=== PATIENT | female | born 1985 | race Caucasian/White ===

== ENCOUNTER 2018-11-14 23:37 | Emergency (ER) | payer OTHER ==
[2018-11-15] MEDS ORDERED: ACETAMINOPHEN 500 MG TABLET (FP) PO ONE (00:09)
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
[2018-11-15] MEDS ORDERED: ACETAMINOPHEN 325 MG TABLET (FP) PO ONE (00:25)
[2018-11-15 00:31] VITALS: BP 110/66; PULSE 83; TEMP 98.5; BMI 25.2
== END 2018-11-15 00:44 | disposition home or self-care (01) ==
LOC: JER 23:37
DX: O26.892 Other specified pregnancy related conditions, second trimester (principal); M62.838 Other muscle spasm; V43.62XA Car passenger injured in collision with other type car in traffic accident, initial encounter; Y92.414 Local residential or business street as the place of occurrence of the external cause; Y93.89 Activity, other specified; Y99.8 Other external cause status; Z3A.24 24 weeks gestation of pregnancy
CPT/HCPCS: 99281-25

== ENCOUNTER 2019-03-11 17:05 | Inpatient (IN) | payer OTHER ==
[2019-03-11] MEDS ORDERED: ELECTROLYTE-148 SOLN 1,000 ML IV SCH (17:10)
[2019-03-11] MEDS ORDERED: PROMETHAZINE HCL 25 MG/1 ML VIAL ONE (17:49)
[2019-03-11] MEDS ORDERED: BUTORPHANOL TARTRATE 1 MG/ML VIAL ONE ×2 (17:49)
[2019-03-11] MEDS ORDERED: OXYTOCIN 20 UNITS in 0.9% NS 20 UNIT/1,000 ML INFUS.BAG IV ONE (18:02)
[2019-03-11 18:12] LABS: BASO % 0.2 % (0-2.0); EOS % 0.7 % (0-4.5); HEMATOCRIT 35.2 % (32.4-45.2); LYMPH % 14.6 % (8-40); MCH 32.6 pg (25.7-33.7); MCHC 34.2 g/dl (32.0-36.0); MEAN CELL VOLUME 95.3 fl (80-96); MEAN PLT VOLUME 6.9 fl (7.5-11.1); MONO % 5.2 % (3.8-10.2); NEUT % 79.3 % (42.8-82.8); PLATELET COUNT 309 K/MM3 (134-434); RBC 3.69 M/mm3 (3.60-5.2); RDW 13.3 % (11.6-15.6); WHITE BLOOD COUNT 11.4 K/mm3 (4.0-10.0)
[2019-03-11 18:14] VITALS: BMI 27.8
[2019-03-11 18:23] LABS: INR 0.97 (0.83-1.09); PROTHROMBIN TIME (PATIENT) 11.4 SEC (9.7-13.0)
[2019-03-11 18:25] LABS: ACTIVATED PTT 26.5 SECONDS (25.2-36.5)
[2019-03-11 18:33] LABS: BLOOD UREA NITROGEN 8.8 mg/dL (7-18); CALCIUM 8.8 mg/dL (8.5-10.1); CREATININE 0.6 mg/dL (0.55-1.3)
--- NOTE | 2019-03-11 18:39 | HP ---
Past Medical History - Admission Chief Complaint: Labor pain History of Present Illness: 33 yo @ 41 weeks gestation, EDC 03/06/19, with prior appendectomy, admitted for labor pain. Upon admission she was 6cm dilated with intact membrane. History Source: Patient Limitations to Obtaining History: No Limitations - Past Medical History ...: 10 ...Para: 3 ...Term: 2 ...: 1 ...Spon : 5 ...Induced : 1 ...Multiple Gestation: 0 ...LMP: 05/30/18 ... Weeks Gestation by Dates: 40.5 ...EDC by Dates: 03/06/19 ...EDC by Sono: 03/06/19 - Past Surgical History Past Surgical History: Yes: None Hx Myomectomy: No Hx Transabdominal Cerclage: No - Smoking History Smoking history: Current every day smoker Have you smoked in the past 12 months: Yes Aproximately how many cigarettes per day: 15 - Alcohol/Substance Use Hx Alcohol Use: No - Social History Usual Living Arrangement: Yes: With Significant Other History of Recent Travel: No Home Medications - Allergies Allergies/Adverse Reactions: Allergies Allergy/AdvReac Type Severity Reaction Status Date / Time No Known Allergies Allergy Verified 03/09/19 18:50 - Home Medications Home Medications: Ambulatory Orders Prenat 115/Iron Fum/Folic/Dss [ 19 Tablet] 1 tab PO DAILY 03/09/19 Family Disease History - Family Disease History Family History: Unremarkable Review of Systems - Review of Systems Constitutional: reports: No Symptoms Eyes: reports: No Symptoms HENT: reports: No Symptoms Neck: reports: No Symptoms Cardiovascular: reports: No Symptoms Respiratory: reports: No Symptoms Gastrointestinal: reports: No Symptoms Genitourinary: reports: Pain Breasts: reports: No Symptoms Reported Musculoskeletal: reports: No Symptoms Integumentary: reports: No Symptoms Neurological: reports: No Symptoms Endocrine: reports: No Symptoms Hematology/Lymphatic: reports: No Symptoms Psychiatric: reports: No Symptoms Pain Intensity: 8 Physical Exam - Maternity Vital Signs: Vital Signs Temperature 98.7 F 03/11/19 18:00 Pulse Rate 78 03/11/19 18:00 Respiratory Rate 18 03/11/19 18:00 Blood Pressure 131/77 03/11/19 18:00 O2 Sat by Pulse Oximetry (%) Constitutional: Yes: Well Nourished Eyes: Yes: Conjunctiva Clear HENT: Yes: Atraumatic Neck: Yes: Supple Cardiovascular: Yes: Regular Rate and Rhythm Lungs: Clear to auscultation Breast(s): Yes: WNL - Abdominal Exam/OB Number of Fetuses: Single Presentation: Vertex Regularity: Regular Intensity: Mod/Strong - Vaginal Exam/OB Vaginal Bleediing: No Dilatation (cm): 6 Effacement (%): 80 Amniotic Membrane Status: Intact Presentation: Vertex/Position Station: -2 - Physical Exam Musculoskeletal: Yes: WNL Extremities: Yes: WNL Integumentary: Yes: WNL ...Motor Strength: WNL Psychiatric: Yes: Alert, Oriented - Labs Lab Results: CBC, BMP 03/11/19 17:30 Problem List - Problems (1) 40 weeks gestation of Code(s): Z3A.40 - 40 WEEKS GESTATION OF (2) Pain during labor Code(s): O99.89 - OTH DISEASES AND CONDITIONS COMPL PREG/CHLDBRTH; R52 - PAIN, UNSPECIFIED Assessment/Plan 40 weeks gestation Active labor Analgesia as needed Anticipate
[2019-03-11] MEDS ORDERED: DEXTROSE 5%-LACTATED RINGERS 1,000 ML IV SCH (18:45)
[2019-03-11] MEDS ORDERED: PROMETHAZINE HCL 25 MG/1 ML VIAL IVPB ONE (18:45)
[2019-03-11] MEDS ORDERED: BUTORPHANOL TARTRATE 1 MG/ML VIAL IVPB ONE (18:45)
[2019-03-11] MEDS ORDERED: OXYTOCIN 30 UNITS in 0.9% NS 30 UNIT/500 ML INFUS.BAG IVPB SCH (19:00)
[2019-03-11] MEDS ORDERED: OXYTOCIN 30 UNITS in 0.9% NS 30 UNIT/500 ML INFUS.BAG IVPB ONE (19:13)
[2019-03-11] MEDS ORDERED: BENZOCAINE 20% 57 GM BOTTLE TP PRN (20:32)
[2019-03-11] MEDS ORDERED: WITCH HAZEL 50% (TUCKS) 40 PAD/JAR PAD TP PRN (20:32)
[2019-03-11] MEDS ORDERED: BISACODYL 10 MG SUPP.RECT RC PRN (20:32)
[2019-03-11] MEDS ORDERED: BENZOCAINE 28 GM HEMORRHOIDAL OINTMENT TP PRN (20:32)
[2019-03-11] MEDS ORDERED: METHYLERGONOVINE MALEATE 0.2 MG/1 ML AMP IM PRN (20:32)
[2019-03-11] MEDS: OXYTOCIN 20 UNITS in 0.9% NS 20 UNIT/1,000 ML INFUS.BAG IV SCH (20:35)
--- NOTE | 2019-03-11 20:36 | PN ---
Delivery - Delivery Vaginal Delivery: Spontaneous Episiotomy/Laceration: None EBL (cc): 250 Delivery, Single - Feeding Plan Initial Plan: Elected not to breastfeed exclusively throughout hospitalization Remarks - Remarks Remarks: Normal spontaneous vaginal delivery of a live infant girl over intact perineum. Nose / Oropharynx suctioned @ perineum. Tight nuchal cord x 1 clamped and cut. Baby handed to nurse. Placenta expelled spontaneously intact.
[2019-03-11] MEDS: IBUPROFEN 600 MG TABLET (FP) PO PRN (23:06)
[2019-03-11] MEDS: ACETAMINOPHEN 325 MG TABLET (FP) PO PRN (23:06)
[2019-03-12] MEDS: FERROUS SO4 325 MG TABLET (FP) PO SCH ×3 (00:18→21:43)
[2019-03-12] MEDS: OXYTOCIN 20 UNITS in 0.9% NS 20 UNIT/1,000 ML INFUS.BAG IV SCH ×2 (04:12→22:19)
[2019-03-12] MEDS: ACETAMINOPHEN 325 MG TABLET (FP) PO PRN ×2 (06:01→21:43)
[2019-03-12] MEDS: IBUPROFEN 600 MG TABLET (FP) PO PRN ×2 (06:01→21:44)
[2019-03-12] MEDS: PRENATAL VITAMINS W/ FOLIC ACID TABLET (FP) PO SCH (09:24)
[2019-03-12 09:31] LABS: BASO % 0.3 % (0-2.0); EOS % 0.5 % (0-4.5); HEMATOCRIT 33.6 % (32.4-45.2); HEMOGLOBIN 11.6 GM/dL (10.7-15.3); LYMPH % 12.3 % (8-40); MCH 33.2 pg (25.7-33.7); MCHC 34.5 g/dl (32.0-36.0); MEAN CELL VOLUME 96.2 fl (80-96); MEAN PLT VOLUME 6.5 fl (7.5-11.1); MONO % 4.3 % (3.8-10.2); NEUT % 82.6 % (42.8-82.8); PLATELET COUNT 278 K/MM3 (134-434); RBC 3.49 M/mm3 (3.60-5.2); RDW 13.5 % (11.6-15.6); WHITE BLOOD COUNT 13.9 K/mm3 (4.0-10.0)
[2019-03-12] MEDS ORDERED: PNEUMOCOCCAL 23 VACCINE 0.5 ML VIAL IM ONE (10:00)
[2019-03-12] MEDS ORDERED: PNEUMOC 13-VAL CONJ-DIP CRM/PF 0.5 ML DISP.SYRIN IM ONE (10:00)
[2019-03-12] MEDS ORDERED: DIPHTH,PERTUSS(ACELL),TET 0.5 ML DISP.SYRIN IM ONE (10:00)
--- NOTE | 2019-03-12 10:01 | PN ---
Post Progress Note - Subjective Subjective: 33 yo Para 3 status post normal vaginal delivery, seen and evaluated. Doing well. She's breast feeding. Post Day: 1 Type of Delivery: Vital Signs: Vital Signs Temperature 98.3 F 03/12/19 06:00 Pulse Rate 72 03/12/19 06:00 Respiratory Rate 18 03/12/19 06:00 Blood Pressure 110/63 03/12/19 06:00 O2 Sat by Pulse Oximetry (%) Breast Exam: Yes: Soft Uterus: Yes: Fundus Firm Abdomen/GI: Yes: Abdomen soft, Tolerating PO Lochia: Yes: Rubra Lochia, amount: Moderate Extremities: Yes: Calves non-tender Perineum: Yes: Intact Activity: Ambulating - Labs Labs: CBC WBC 13.9 K/mm3 (4.0-10.0) H 03/12/19 09:10 RBC 3.49 M/mm3 (3.60-5.2) L 03/12/19 09:10 Hgb 11.6 GM/dL (10.7-15.3) 03/12/19 09:10 Hct 33.6 % (32.4-45.2) 03/12/19 09:10 MCV 96.2 fl (80-96) H 03/12/19 09:10 MCH 33.2 pg (25.7-33.7) 03/12/19 09:10 MCHC 34.5 g/dl (32.0-36.0) 03/12/19 09:10 RDW 13.5 % (11.6-15.6) 03/12/19 09:10 Plt Count 278 K/MM3 (134-434) 03/12/19 09:10 MPV 6.5 fl (7.5-11.1) L 03/12/19 09:10 Absolute Neuts (auto) 11.4 K/mm3 (1.5-8.0) H 03/12/19 09:10 Neutrophils % 82.6 % (42.8-82.8) 03/12/19 09:10 Lymphocytes % 12.3 % (8-40) 03/12/19 09:10 Monocytes % 4.3 % (3.8-10.2) 03/12/19 09:10 Eosinophils % 0.5 % (0-4.5) 03/12/19 09:10 Basophils % 0.3 % (0-2.0) 03/12/19 09:10 Nucleated RBC % 0 % (0-0) 03/12/19 09:10 Problem List - Problems (1) 40 weeks gestation of Code(s): Z3A.40 - 40 WEEKS GESTATION OF (2) Pain during labor Code(s): O99.89 - OTH DISEASES AND CONDITIONS COMPL PREG/CHLDBRTH; R52 - PAIN, UNSPECIFIED (3) Status post normal vaginal delivery Code(s): QCJ7706 - Assessment/Plan Status post vaginal delivery Stable Continue routine care
[2019-03-12] MEDS ORDERED: SENNOSIDES/DOCUSATE COMBO (SENNA PLUS) TABLET (UD) PO PRN (22:00)
--- NOTE | 2019-03-13 05:39 | DS ---
Physical Exam-TIN ASSORTER Vital Signs: Vital Signs Temperature 99.1 F 03/12/19 22:00 Pulse Rate 75 03/12/19 22:00 Respiratory Rate 18 03/12/19 22:00 Blood Pressure 122/77 03/12/19 22:00 O2 Sat by Pulse Oximetry (%) Constitutional: Yes: Well Nourished Eyes: Yes: Conjunctiva Clear HENT: Yes: Atraumatic Neck: Yes: Supple Cardiovascular: Yes: Regular Rate and Rhythm Respiratory: Yes: Regular Gastrointestinal: Yes: Normal Bowel Sounds ...Rectal Exam: Yes: WNL Renal/: Yes: WNL Pelvis: Yes: WNL External Genitalia: Yes: Normal Vaginal Exam: Yes: Normal Cervix: Yes: Normal Uterus: Yes: Firm ....Post : Yes: Uterus firm, Moderate lochia serosa Breast(s): Yes: WNL Musculoskeletal: Yes: WNL Extremities: Yes: WNL Integumentary: Yes: WNL Neurological: Yes: Alert, Oriented ...Motor Strength: WNL Psychiatric: Yes: Alert, Oriented Labs: CBC, BMP 03/12/19 09:10 03/11/19 17:29 Delivery - Delivery Vaginal Delivery: Spontaneous Type of Anesthesia: None Episiotomy/Laceration: None EBL (cc): 300 Delivery, Single - Stages of Labor Date 1st Stage Initiatied: 03/11/19 Time 1st Stage Initiated: 13:20 Date 2nd Stage Initiated: 03/11/19 Time 2nd Stage Initiated: 20:10 Date of Delivery: 03/11/19 Time of Delivery: 20:29 Time Placenta Delivered: 20:31 - Condition of Aircraft Log Clerk/Telephone Assembler Present: No Gender: Female Weight: 7 lb 7 oz Position: Left, OA Total Hours ROM (Hrs/Mins): [id number] - 1 Minute Total Score: 9 5 Minutes Total Score: 9 - Lee Feeding Plan Initial Plan: Elected not to breastfeed exclusively throughout hospitalization Discharge Summary Reason For Visit: LABOR Current Active Problems 40 weeks gestation of (Acute) Pain during labor (Acute) Status post normal vaginal delivery (Acute) Procedures: Principal: Normal spontaneous vaginal delivery Hospital Course: Routine care Condition: Good - Instructions Diet, Activity, Other Instructions: Regular diet No douching, no sexual intercourse x 6 weeks F/U with in 6 weeks Disposition: HOME - Home Medications Comprehensive Discharge Medication List: Ambulatory Orders Prenat 115/Iron Fum/Folic/Dss [ 19 Tablet] 1 tab PO DAILY 03/09/19
[2019-03-13] MEDS: ACETAMINOPHEN 325 MG TABLET (FP) PO PRN (08:14)
[2019-03-13] MEDS: IBUPROFEN 600 MG TABLET (FP) PO PRN (08:15)
[2019-03-13] MEDS: PRENATAL VITAMINS W/ FOLIC ACID TABLET (FP) PO SCH (09:47)
[2019-03-13] MEDS: FERROUS SO4 325 MG TABLET (FP) PO SCH (09:47)
[2019-03-13 10:49] VITALS: BP 135/71; PULSE 71; TEMP 98.3
== END 2019-03-13 11:40 | disposition home or self-care (01) | DRG 560 ==
LOC: JLDR 17:05 → J3W 22:55
PROVIDERS: ADMIT Obstetrics & Gynecology; ATTEND Obstetrics & Gynecology
PROC: 10E0XZZ Delivery of Products of Conception, External Approach (ICD-10-PCS; principal; 2019-03-11)
DX: O80 Encounter for full-term uncomplicated delivery (principal); Z3A.40 40 weeks gestation of pregnancy; Z37.0 Single live birth
CPT/HCPCS: 36415; 59409; 80048; 85025; 85610; 85730; 86593; 86850; 86900; 86901; 90715; 90732; G0009